=== PATIENT | male | born 2005 | race Caucasian/White ===

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

== ENCOUNTER 2023-02-07 12:44 | Emergency (ER) | payer MEDICAID, SELFPAY ==
[2023-02-07 13:01] VITALS: BP 131/78; PULSE 69; RESP 16; TEMP 37; O2SAT 98; BMI 20.7
== END 2023-02-07 16:17 | disposition left against medical advice (07) ==
PROVIDERS: Emergency Provider Student in an Organized Health Care Education/Training Program; PCP Family Medicine
DX: Z53.21 Procedure and treatment not carried out due to patient leaving prior to being seen by health care provider (principal)

== ENCOUNTER 2023-02-07 17:25 | Emergency (ER) | payer MEDICAID, SELFPAY ==
[2023-02-07 17:34] VITALS: BP 148/75; RESP 18; TEMP 36.8; O2SAT 98; BMI 21.3
--- NOTE | 2023-02-07 17:54 | ED.UPPEXIN ---
HPI - Extremity Injury (Upper) General Time Seen by Provider: 17:54 Date Seen: 02/07/23 Chief Complaint: Extremity Pain/Injury, Upper Stated Complaint: pain in right arm Time Seen by Provider: 02/07/23 17:54 Source: patient Mode of arrival: ambulatory Limitations: no limitations History of Present Illness HPI narrative: Patient is a 17-year-old male with history of ADHD who comes to the emergency room for evaluation regarding right arm pain. Patient notes he tried to call the clinic and they suggested he go to urgent care. He was worried that he may have a fracture or something that would ultimately end his life and thus he came to the emergency room. Patient notes that he awoke this morning with pain in his right arm. He shows the arm to be on the volar surface medial aspect. This morning the pain radiated into his right 5th finger. That has since dissipated. He denies neck pain or shoulder pain. He cannot recall any injury. 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 He tells me that he has a chronically partially dislocated right shoulder. He denies shoulder dislocation in the past and has not had any trauma with that. States he does not do his physical therapy like he should. Patient notes movement does not really increase or decrease discomfort. He has not taken any Tylenol or ibuprofen. He describes a tingling and discomfort when he touches his skin. Related Data Previous Rx's Medication Instructions Recorded famotidine 20 mg tablet (Pepcid) 20 mg PO BID #60 tabs 09/18/22 epinephrine 0.3 mg/0.3 mL 0.3 ml IM ONCE PRN anaphylaxis #2 09/21/22 injection, auto-injector ea lisdexamfetamine 20 mg capsule 20 mg PO QAM #30 caps 01/07/23 (Vyvanse) fluticasone propionate 50 1 - 2 spray intranasal QDAY #16 01/10/23 mcg/actuation nasal grams spray,suspension (Flonase Allergy Relief) Allergies Allergy/AdvReac Type Severity Reaction Status Date / Time penicillin V Allergy Severe Hives Verified 02/07/23 17:37 shellfish derived Allergy Severe Hives Verified 02/07/23 17:37 bee pollen Allergy Unknown Unknown Verified 02/07/23 17:37 Review of Systems Status of ROS: Reports: 6 or more systems reviewed and unremarkable except as noted in History and below Const: Denies: fever or chills Eyes: Denies: change in vision ENMT: Denies: neck pain Musculo: Reports: extremity pain; Denies: back pain, neck pain, extremity swelling, joint pain or limited range of motion Neuro: Denies: headache PFSH [facility] [place] Medical History Food allergy ?Z91.018 - Allergy to other foods (ICD-10) Eustachian tube dysfunction ?H69.80 - Other specified disorders of Eustachian tube, unspecified ear (ICD-10) Acne ?L70.9 - Acne, unspecified (ICD-10) Polysubstance abuse ?F19.10 - Other psychoactive substance abuse, uncomplicated (ICD-10) Pervasive developmental disorder ?F84.9 - Pervasive developmental disorder, unspecified (ICD-10) Nocturnal enuresis ?N39.44 - Nocturnal enuresis (ICD-10) Disturbance in sleep behavior ?G47.9 - Sleep disorder, unspecified (ICD-10) Autism spectrum disorder ?F84.0 - Autistic disorder (ICD-10) Attention deficit hyperactivity disorder (ADHD) ?F90.9 - Attention-deficit hyperactivity disorder, unspecified type (ICD-10) Social History Narrative: Single, lives with his parents, history of drug abuse, unemployed Smoking Status: Never smoker Do you use any of these nicotine containing products: Vaping Products Second hand tobacco smoke exposure: No How often do you have a drink containing alcohol: never AUDIT-C Alcohol total score: 0 Non-prescribed substance use: former substance user Little interest or pleasure in doing things: not at all Feeling down, depressed, or hopeless: not at all Exam Narrative: Exam Narrative: Patient is alert and oriented. Very talkative and animated. Very pleasant gentleman. External ears eyes nose clear. Palpation of cervical spine does not yield any tenderness. Palpation across right shoulder upper arm without tenderness. No deformity is noted. Patient has full strength with extension flexion at the elbows wrist. Abduction at the fingers intact bilaterally. DTR 1+ on the right. With palpation over the ulnar notch I can recreate the patient's discomfort. International Account Manager strength intact. Const: Vital Signs, click to edit/add: Vital Signs - 24 hr 02/07/23 17:34 Temperature 98.3 F Respiratory Rate 18 Blood Pressure [Ri ght Upper Arm] 148/75 H Pulse Oximetry 98 Oxygen Delivery Me thod Room Air Course Vital Signs Vital signs: Initial Vital Signs Temperature 98.3 F 02/07/23 17:34 Temperature Source Temporal Artery Scan 02/07/23 17:34 Respiratory Rate 18 02/07/23 17:34 Blood Pressure 148/75 H 02/07/23 17:34 Blood Pressure Mean 99 02/07/23 17:34 Blood Pressure Position Supine 02/07/23 17:34 Pulse Oximetry 98 02/07/23 17:34 Oxygen Delivery Method Room Air 02/07/23 17:34 Vital Signs Temperature 98.3 F 02/07/23 17:34 Respiratory Rate 18 02/07/23 17:34 Blood Pressure 148/75 H 02/07/23 17:34 Pulse Oximetry 98 02/07/23 17:34 Oxygen Delivery Method Room Air 02/07/23 17:34 Temperature 98.3 F 02/07/23 17:34 Respiratory Rate 18 02/07/23 17:34 Blood Pressure 148/75 H 02/07/23 17:34 Pulse Oximetry 98 02/07/23 17:34 Oxygen Delivery Method Room Air 02/07/23 17:34 MDM - Extremity Injury (Upper) MDM Narrative Medical decision making narrative: 1. Ulnar nerve irritation-most likely this is occurring as patient sleeps with fully flex elbows. I have asked him to consider sleeping with a pillow for his arm or even wrapping a towel around his elbow so that he cannot completely flex them. He states that as long as he knows that he has no fracture and he is not going to this is fine with him. He is also suggested to take ibuprofen but he states he usually does not take medications. At this time reassurance. I would have him follow-up if he has symptoms persisting longer than a week. He will need to see his primary clinic or Orthopedics. He may need a nerve study if this persists. No wasting of the hypothenar eminence noted. Full strength and motor intact. 2. Disposition-home at this time. Return as needed. May also use ice to area of elbow if he desires. Medical Records Attestation: I reviewed the patient's medical records. Discharge Plan Discharge Clinical Impression: Ulnar nerve abnormality Qualifiers: Laterality: right Qualified Code(s): G56.21 - Lesion of ulnar nerve, right upper limb Patient Disposition: Home, Self-Care Condition: Unchanged Additional Instructions: When you are sleeping do your best to not have your arms bent at the elbows. You may use ice to area of discomfort at the elbow. Ibuprofen is suggested at 400 mg every 8 hours as needed. Seek medical attention with Orthopedics or a clinic physician for worsening symptoms or if the symptoms are ongoing greater than 1 week. Activity Level: No Restrictions Discharge Diet: Regular Prescriptions: No Action famotidine [Pepcid] 20 mg tablet 20 mg PO BID Qty: 60 11RF Vyvanse 20 mg capsule 20 mg PO QAM Qty: 30 0RF fluticasone propionate [Flonase Allergy Relief] 50 mcg/actuation spray,suspension 1 - 2 spray intranasal QDAY Qty: 16 11RF Rx Instructions: administer into each nostril epinephrine 0.3 mg/0.3 mL auto-injector 0.3 ml IM ONCE PRN (Reason: anaphylaxis) Qty: 2 1RF Follow Up/Referrals: Shoaib Link MD [Primary Care Provider] - Stand Alone Forms: [employer] Info Instructions
== END 2023-02-07 18:14 | disposition home or self-care (01) ==
LOC: ED 18:11
PROVIDERS: Emergency Provider Family Medicine; PCP Family Medicine
DX: G56.21 Lesion of ulnar nerve, right upper limb (principal)
CPT/HCPCS: 99282; 99283

== ENCOUNTER 2023-05-07 08:16 | Outpatient (CLI) | payer MEDICAID, SELFPAY | END 2023-05-07 08:17 | disposition home or self-care (01) | LOC: NFLDREF 08:19 | PROVIDERS: PCP Family Medicine; Visit Provider Family Medicine | DX: L65.9 Nonscarring hair loss, unspecified (principal); R59.0 Localized enlarged lymph nodes | CPT/HCPCS: 84443 ==